=== PATIENT | male | born 1975 | race American Indian/Alaskan Native ===

== ENCOUNTER 2017-01-13 06:35 | Day surgery (SDC) | payer OTHER ==
[~2017-01-13 06:35] MED LIST: Sodium Chloride 0.9% 1,000 ML IV SCH; ceFAZolin 2 GM in Premix Bag 1 BAG IV ONE; metroNIDAZOLE/Normal Saline 500 MG in Premix Bag 1 BAG IV ONE
[2017-01-13] MEDS ORDERED: Bupivacaine 0.5%/EPINEPHrine 1:200,000 50 ML MDV ONE (06:50)
[2017-01-13] MEDS ORDERED: Sodium Chloride 0.9% 1,000 ML IV SCH ×2 (07:15→09:45)
[2017-01-13] MEDS ORDERED: Rocuronium 50 MG/5 ML Vial ONE (07:34)
[2017-01-13] MEDS ORDERED: fentaNYL 250 MCG/5 ML SDV ONE ×2 (07:34→08:22)
[2017-01-13] MEDS ORDERED: Neostigmine Methylsulfate 1 MG/ML 5 ML Syringe ONE (07:34)
[2017-01-13] MEDS ORDERED: Ondansetron 4 MG/2 ML SDV ONE (07:34)
[2017-01-13] MEDS ORDERED: Propofol 200 MG/20 ML SDV ONE (07:34)
[2017-01-13] MEDS ORDERED: Dexamethasone 4 MG/ML SDV ONE (07:34)
[2017-01-13] MEDS ORDERED: Succinylcholine/Normal Saline 200 MG/10 ML Syringe ONE (07:34)
[2017-01-13] MEDS: ceFAZolin 2 GM in Premix Bag 1 BAG IV ONE ×2 (08:11→12:56)
[2017-01-13] MEDS: metroNIDAZOLE/Normal Saline 500 MG in Premix Bag 1 BAG IV ONE ×2 (08:11→12:57)
[2017-01-13] MEDS ORDERED: Docusate Sodium 100 MG Cap PO PRN (08:55)
[2017-01-13] MEDS ORDERED: Bisacodyl 5 MG Tab PO PRN (08:55)
[2017-01-13] MEDS ORDERED: Zolpidem 5 MG Tab PO PRN (08:55)
[2017-01-13] MEDS ORDERED: Benzocaine/Cetylpyridinium/Menthol Lozenge MUCMEM PRN (08:55)
[2017-01-13] MEDS ORDERED: diphenhydrAMINE 50 MG/ML SDV IVPUSH PRN (08:55)
[2017-01-13] MEDS ORDERED: hydrOXYzine HCl 50 MG/ML SDV IM ONE (09:04)
[2017-01-13] MEDS: fentaNYL 100 MCG/2 ML SDV IVPUSH PRN ×2 (11:01→12:00)
[2017-01-13] MEDS: Acetaminophen/oxyCODONE 325-10 MG Tab PO PRN ×3 (12:39→20:30)
--- NOTE | 2017-01-13 15:03 | OR ---
DATE OF PROCEDURE: 01/13/2017 PROCEDURE: Laparoscopic repair of umbilical/ventral hernia. COMPLICATIONS: None. 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 ANESTHESIA: General/local. INDICATION: This is a 41-year-old male with a small hernia approximately 3 cm in size requiring repair. Risks, benefits, alternatives, limitations including, but not limited to infection, bleeding, and perforation of abdominal structures such as bowel, bladder, and blood vessels. This was not incarcerated. This was not strangulated. PROCEDURE IN DETAIL: The patient was placed in supine position. An incision was made in the right mid abdomen. A Veress needle was used to enter the abdomen without abnormality. A drop test was performed without abnormality. The abdomen was subsequently insufflated. There was a small amount of inflation of the mesentery, however, on inspection no evidence of enterotomy or injury noted. The two additional 5 mm ports were placed into the midline. The hernia was readily identified and a small piece of fat was incarcerated in this and subsequently removed. This was controlled with electrocautery and no bleeding was noted. An 8 cm piece of mesh was introduced. This was the inflatable type mesh that was introduced through the 10 mm port. A small vaishali was created in the umbilicus and this was tented up and insufflated. Pro tackers were then used to tack this within the abdomen. There were two concentric rings of tacking sutures. This appeared well to the abdominal wall without any gaps or folds. The balloon was subsequently deflated and removed. The point of entry that was reinspected for bleeding, injury to abdominal structures, and none was noted. The air was removed. All ports were irrigated and subsequently closed with 3-0 Vicryl and 4-0 Vicryl interrupted running fashion. Dermabond and local anesthetic to total 40 mL was applied. The patient tolerated the procedure well. Ck Siegel MD /[id number]
[2017-01-13] MEDS ORDERED: Cyclobenzaprine 10 MG Tab PO PRN (16:40)
[2017-01-14] MEDS: Acetaminophen/oxyCODONE 325-10 MG Tab PO PRN ×2 (01:43→08:11)
[2017-01-14 07:15] VITALS: BP 114/64
[2017-01-14] MEDS ORDERED: Magnesium Hydroxide 400 MG/5 ML Susp 30 ML Cup PO ONE (07:30)
[2017-01-14] MEDS ORDERED: Magnesium Citrate Solution 296 ML Bottle PO ONE (10:30)
--- NOTE | 2017-01-15 10:37 | PN ---
DATE OF SERVICE: 01/14/2017 The patient is status post ventral hernia repaired laparoscopically yesterday. Clinically, he is doing well at this point. He was tentatively planned to be discharged home last night, but felt more comfortable staying overnight. He will be sent home. He has been constipated. We will send him home with a bottle of magnesium citrate to take when he gets home, otherwise, add some additional bowel stimulation if needed at home to take thereafter. Otherwise, discharge orders will continue as per Dr. Siegel's orders set from yesterday. Brian Pena MD /[id number]
== END 2017-01-14 10:12 | disposition home or self-care (01) ==
LOC: JP.SDS 06:35 → JP.MS 10:30 → JP.SDS 01-14 10:12
PROVIDERS: ATTEND Surgery
DX: K43.9 Ventral hernia without obstruction or gangrene (principal)
CPT/HCPCS: 36415; 49653; 80048; 80053; 85025; 85027; A9270; J0690; J1100; J2405; J2704; J3010; J3410; J7040; C1781

== ENCOUNTER 2019-07-19 07:21 | Day surgery (SDC) | payer OTHER ==
[2019-07-19] MEDS ORDERED: Lactated Ringers 1,000 ML IV SCH (08:15)
[2019-07-19] MEDS ORDERED: Propofol 200 MG/20 ML SDV ONE ×2 (08:38→09:04)
[2019-07-19] MEDS ORDERED: fentaNYL 100 MCG/2 ML SDV ONE (08:38)
[2019-07-19] MEDS ORDERED: Midazolam 1 MG/ML 2 ML SDV ONE (08:38)
[2019-07-19 10:20] VITALS: BP 110/69; PULSE 83
--- NOTE | 2019-07-19 14:48 | OR ---
DATE OF PROCEDURE: 07/19/2019 SURGEON: Keith Meléndez MD PREOPERATIVE DIAGNOSIS: Strong family history of colon cancer. Mother of colon cancer at age 63. POSTOPERATIVE DIAGNOSES: Strong family history of colon cancer. Mother of colon cancer at age 63. Small right colon polyp. PROCEDURE: Colonoscopy to the cecum with biopsy resection of small right colon polyp. ANESTHESIA: IV anesthesia with monitored anesthesia care. INDICATION: This 44-year-old white male is referred for a colonoscopy because of a strong family history of colon cancer. His mother had colon cancer. She at age 63. I counseled him for the procedure, including risks and alternatives, and he gave his informed consent to proceed. DESCRIPTION OF PROCEDURE: The patient was placed in the left lateral decubitus position. IV anesthesia was administered by the anesthesia service. Time-out was held. A rectal exam was performed, which was unremarkable. The flexible video Olympus colonoscope was introduced through his anus, up his rectum and out his colon, all the way to the cecum. Once the cecum was reached, the scope was slowly withdrawn examining the mucosa throughout. In the right colon, we saw a small polyp, which was removed with a couple of bites of the biopsy forceps. The scope was withdrawn further with no other lesions noted. The scope was retroflexed in the rectum with the distal rectum appearing unremarkable. The scope was straightened and removed. He tolerated the procedure well. Keith Melnédez MD /[id number]
== END 2019-07-19 10:21 | disposition home or self-care (01) ==
LOC: JP.SDS 07:21
PROVIDERS: ATTEND Surgery
DX: Z12.11 Encounter for screening for malignant neoplasm of colon (principal); D12.0 Benign neoplasm of cecum; E78.5 Hyperlipidemia, unspecified; Z80.0 Family history of malignant neoplasm of digestive organs
CPT/HCPCS: 45380; J2250; J2704; J3010; J7120; 88305

== ENCOUNTER 2020-12-21 16:11 | Emergency (ER) | payer OTHER ==
[2020-12-21] MEDS ORDERED: Aspirin 81 MG Tab.Chew PO ONE (16:24)
--- NOTE | 2020-12-21 16:25 | EDM.PDOC ---
ED HPI GENERAL MEDICAL PROBLEM - General Chief Complaint: Chest Pain Stated Complaint: chest pain/pressure Time Seen by Provider: 12/21/20 16:35 Source of Information: Reports: Patient, Old Records, RN History Limitations: Reports: No Limitations - History of Present Illness INITIAL COMMENTS - FREE TEXT/NARRATIVE: 45 yo male presents with L lower/anterior lateral chest pains for a few days worse at night. Did some fencing over the weekend without much issue. Called his clinic today and was told to come to the ER. Has no hx of CAD. Does have a pHx of ED and borderline elevated cholesterol. He does not know his whole family, but his grandmother has CAD and CHF. He has minimal sx's now in the ER. No self tx. He does not smoke. No DM. Onset: Unknown/Unsure Duration: Day(s):, Waxing/Waning Location: Reports: Chest Quality: Reports: Pressure (mild) Severity: Mild Improves with: Reports: Other (sitting/standing) Worsens with: Reports: Other (lying down) Context: Reports: Other (See HPI) Associated Symptoms: Reports: Chest Pain. 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: Reports: Other (see below) (none) Left Upper Chest Pain Score (Numeric/FACES): 3 - Related Data Allergies Allergy/AdvReac Type Severity Reaction Status Date / Time No Known Allergies Allergy Verified 12/21/20 16:27 Home Meds: Home Meds Sildenafil Citrate 100 mg PO ASDIRECTED PRN 07/16/19 [History] Ginkgo Biloba 40 mg PO Q48H 07/19/19 [History] Past Medical History HEENT History: Reports: Impaired Vision Other HEENT History: wears glasses Gastrointestinal History: Reports: Diverticulosis, GERD Musculoskeletal History: Reports: Fracture Psychiatric History: Reports: Depression Endocrine/Metabolic History: Reports: Obesity/BMI 30+ - Infectious Disease History Infectious Disease History: Reports: Chicken Pox, Shingles - Past Surgical History HEENT Surgical History: Reports: Other (See Below) Other HEENT Surgeries/Procedures: eye lid plastic surgery to repair laceration GI Surgical History: Reports: EGD, Hernia, Abdominal Endocrine Surgical History: Reports: None Social & Family History - Family History Family Medical History: No Pertinent Family History Cardiac: Reports: [place] OBGYN: Reports: Other (See Below) Other OBGYN Family History: ovarian cysts Musculoskeletal: Reports: Arthritis, Back pain, Chronic Psychiatric: Reports: Depression, Emotional Problems, Psych Hospitalization(s), Psychosis, Other (See Below) Other Psychiatric Family History: brother committed suicide Endocrine/Metabolic: Reports: Diabetes, Type I, Hypothyroidism Oncologic: Reports: Colon, Ovarian - Caffeine Use Caffeine Use: Reports: Coffee ED ROS GENERAL - Review of Systems Review Of Systems: See Below Constitutional: Reports: No Symptoms HEENT: Reports: No Symptoms Respiratory: Reports: No Symptoms Cardiovascular: Reports: Chest Pain Endocrine: Reports: No Symptoms GI/Abdominal: Reports: No Symptoms : Reports: No Symptoms Musculoskeletal: Reports: No Symptoms Skin: Reports: No Symptoms Neurological: Reports: No Symptoms Psychiatric: Reports: No Symptoms ED EXAM, GENERAL - Physical Exam Exam: See Below Exam Limited By: No Limitations General Appearance: Alert, WD/WN, No Apparent Distress Eye Exam: Bilateral Eye: Normal Inspection Ears: Normal External Exam, Normal Canal, Hearing Grossly Normal Ear Exam: Bilateral Ear: Auricle Normal, Canal Normal Nose: Normal Inspection, No Blood Throat/Mouth: Normal Inspection, Normal Lips, Normal Oropharynx, Normal Voice, No Airway Compromise Head: Atraumatic, Normocephalic Neck: Normal Inspection Respiratory/Chest: No Respiratory Distress, Lungs Clear, Normal Breath Sounds, No Accessory Muscle Use. No: Chest Non-Tender (rib tenderness to area he reported pain) Cardiovascular: Regular Rate, Rhythm, No Edema GI/Abdominal: Normal Bowel Sounds, Soft, No Distention, Tender (LUQ). No: Non- Tender, Distended, Guarding, Rigid, Rebound Back Exam: Normal Inspection Extremities: Normal Inspection, Normal Range of Motion, Non-Tender, No Pedal Edema Neurological: Alert, Oriented, CN II-XII Intact, Normal Cognition, No Motor/Sensory Deficits Psychiatric: Normal Affect, Normal Mood Skin Exam: Warm, Dry, Intact, Normal Color, No Rash #1 Interpretation EKG Date: 12/21/20 Time: 16:20 Rhythm: NSR Rate (Beats/Min): 79 [place]: Normal P-Wave: Present QRS: Normal ST-T: Normal QT: Normal Comparison: NA - No Prior EKG Course - Vital Signs Last Recorded V/S: Last Vital Signs Temp 36.1 C 12/21/20 16:38 Pulse 73 12/21/20 16:45 Resp 15 12/21/20 16:45 BP 119/74 12/21/20 16:45 Pulse Ox 97 12/21/20 16:45 - Orders/Labs/Meds Orders: Active Orders 24 hr Category Date Time Status Cardiac Monitoring [RC] .As Directed Care 12/21/20 16:19 Active EKG Documentation Completion [RC] ASDIRECTED Care 12/21/20 16:19 Active EKG 12 Lead [EK] Routine Ther 12/21/20 16:19 Ordered Labs: Laboratory Tests 12/21/20 12/21/20 Range/Units 16:35 16:35 AST 20 (15-37) U/L Troponin I < 0.017 (0.000-0.056) ng/mL Meds: Medications Discontinued Medications Generic Name Dose Route Start Last Admin Trade Name Freq PRN Reason Stop Dose Admin Acetaminophen 1,000 mg 12/21/20 16:54 12/21/20 17:01 Acetaminophen 500 Mg Tab PO 12/21/20 16:55 1,000 mg ONETIME ONE Administration Aspirin 324 mg 12/21/20 16:24 12/21/20 16:47 Aspirin 81 Mg Tab.Chew PO 12/21/20 16:25 324 mg ONETIME ONE Administration Departure - Departure Time of Disposition: 17:15 Disposition: Home, Self-Care 01 Condition: Good Clinical Impression: Chest wall pain Instructions: Chest Wall Pain, [id number] Referrals: Yolie Pena I INFRASTRUCTURE CONSULTANT [Primary Care Provider] - Forms: ED Department Discharge Additional Instructions: Take acetaminophen up to 1000 mg every 6 hrs for pain relief. Add ibuprofen 400 mg every 6 hrs with food for added relief as needed. Follow up with your provider by the end of the week. Sepsis Event Note (ED) - Focused Exam Vital Signs: Vital Signs Temp Pulse Resp BP Pulse Ox 12/21/20 16:45 73 15 119/74 97 12/21/20 16:38 36.1 C 74 17 122/77 97 - My Orders Last 24 Hours: My Active Orders 12/21/20 16:19 Cardiac Monitoring [RC] .As Directed EKG Documentation Completion [RC] ASDIRECTED EKG 12 Lead [EK] Routine - Assessment/Plan Last 24 Hours: My Active Orders 12/21/20 16:19 Cardiac Monitoring [RC] .As Directed EKG Documentation Completion [RC] ASDIRECTED EKG 12 Lead [EK] Routine
[2020-12-21 16:46] VITALS: BP 119/74; PULSE 73
[2020-12-21] MEDS ORDERED: Acetaminophen 500 MG Tab PO ONE (16:54)
== END 2020-12-21 17:10 | disposition home or self-care (01) ==
LOC: JP.ED 16:11
DX: R07.89 Other chest pain (principal)
CPT/HCPCS: 36415; 84450; 84484; 93005; 99285; A9270; 99284

== ENCOUNTER 2021-01-30 12:38 | Emergency (ER) | payer OTHER ==
[2021-01-30] MEDS ORDERED: HYDROmorphone 0.5 MG/0.5 ML Syringe IVPUSH ONE (13:09)
[2021-01-30] MEDS ORDERED: Metoclopramide 10 MG/2 ML SDV IV ONE (13:09)
[2021-01-30] MEDS ORDERED: Iopamidol 612 MG/ML 500 ML Multipack Bottle IV ONE (13:48)
[2021-01-30] MEDS ORDERED: Sodium Chloride 0.9% 10 ML Syringe FLUSH ONE (13:48)
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
[2021-01-30] MEDS ORDERED: Sodium Chloride 0.9% 75 ML IV SCH (14:00)
[2021-01-30] MEDS ORDERED: fentaNYL 100 MCG/2 ML SDV IVPUSH ONE (14:56)
[2021-01-30 15:38] VITALS: BP 117/78; PULSE 92
--- NOTE | 2021-01-30 15:40 | CRLCT ---
For Patients: As a result of the Century Cures Act, medical imaging exams and procedure reports are released immediately into your electronic medical record. You may view this report before your referring provider. If you have questions, please contact your health care provider. Indication: Upper abdominal trauma. Technique: Multiple contiguous axial images were obtained from the thoracic inlet to the symphysis pubis after the intravenous administration 100 milliliters [id number]. Please note that all CT scans at this facility use dose modulation, iterative reconstruction, and/or weight-based dosing when appropriate to reduce radiation dose to as low as reasonably achievable. Comparison: None Findings: Minimal bibasilar atelectasis is identified. No infiltrate, pleural effusion, or pneumothorax is identified. The thoracic aorta is normal in caliber. There is no evidence of aortic dissection. No mediastinal, hilar, or axillary lymphadenopathy is identified. The heart is normal in size. No pericardial effusion is identified. The liver, gallbladder, spleen, pancreas, adrenals, and kidneys are normal. No intrahepatic biliary ductal dilatation is identified. No hydronephrosis is identified. In the pelvis, the urinary bladder is grossly normal. Small fat containing right inguinal hernia is identified. The prostate gland is enlarged. Prostatic calcifications are identified. The small and large bowel are normal in caliber. The appendix is normal in caliber. A few colonic diverticula are identified. There is no evidence of colonic diverticulitis. No free air or free fluid is identified within the abdomen or pelvis. The abdominal aorta is normal in caliber. The alignment of the lumbar spine is within normal limits. No lumbar spine vertebral fractures are identified. The alignment of the thoracic spine is within normal limits. No thoracic spine fractures are identified. The clavicles are intact. The humeral heads are seated within the glenoid. The scapula are intact. No displaced pelvic fractures are identified. No displaced rib fractures are identified. Impression: No evidence of injury of the chest, abdomen, or pelvis. Please note that all CT scans at this facility use dose modulation, iterative reconstruction, and/or weight-based dosing when appropriate to reduce radiation dose to as low as reasonably achievable. Dictated by Dora Navarrete MD @ 01/30/2021 3:37:[address] Dora Navarrete @ Jan 30 2021 3:37PM
[2021-01-30] MEDS ORDERED: Acetaminophen/HYDROcodone 325-5 MG Tab PO ONE (15:45)
[2021-01-30] MEDS ORDERED: Naproxen 250 MG Tab PO SCH (16:00)
== END 2021-01-30 16:25 | disposition home or self-care (01) ==
LOC: JP.ED 12:38
DX: S30.1XXA Contusion of abdominal wall, initial encounter (principal); S20.311A Abrasion of right front wall of thorax, initial encounter; E66.9 Obesity, unspecified; Z72.0 Tobacco use; Z68.31 Body mass index [BMI] 31.0-31.9, adult; W01.0XXA Fall on same level from slipping, tripping and stumbling without subsequent striking against object, initial encounter
CPT/HCPCS: 71260; 74177; 96374; 96375; 99284-25; 99285; A9270-GY; J1170; J3010; Q9967